=== PATIENT | female | born 1975 | race Caucasian/White ===

== ENCOUNTER 2018-06-03 11:07 | Inpatient (IN) | payer BC ==
[~2018-06-03] VITALS: Ht 162.6 cm; Wt 86.2 kg
[2018-06-03 11:21] VITALS: BP 123/70
--- NOTE | 2018-06-03 11:26 | NUR ---
Note undone in EDM - 06/03/18 at 1142 by SANGITA PATIENT PRESENTS TO ED WITH LOWER ABD PAIN AND CRAMPING ACCOMPANIED BY VAGINAL BLEEDING x3 DAYS.DENIES N/V/D; SKIN IS PINK/WARM/DRY; AAOX4 WITH EVEN AND STEADY GAIT; LUNGS CLEAR BL; HR EVEN AND REGULAR; PT DENIES ANY FEVER, CP, SOB, OR COUGH AT THIS TIME; PATIENT STATES PAIN OF 10/10 AT THIS TIME; VSS; PATIENT POSITIONED FOR COMFORT; HOB ELEVATED; BEDRAILS UP X2; BED DOWN. ER MADE AWARE OF PT STATUS.
--- NOTE | 2018-06-03 11:38 | NUR ---
Patient being evaluated by physician at bedside.
--- NOTE | 2018-06-03 11:43 | NUR ---
PATIENT PRESENTS TO ED WITH LOWER ABD PAIN AND CRAMPING.DENIES N/V/D; SKIN IS PINK/WARM/DRY; AAOX4 WITH EVEN AND STEADY GAIT; LUNGS CLEAR BL; HR EVEN AND REGULAR; PT DENIES ANY FEVER, CP, SOB, OR COUGH AT THIS TIME; PATIENT STATES PAIN OF 10/10 AT THIS TIME; VSS; PATIENT POSITIONED FOR COMFORT; HOB ELEVATED; BEDRAILS UP X2; BED DOWN. ER MD MADE AWARE OF PT STATUS.
--- NOTE | 2018-06-03 12:30 | NUR ---
PATIENT TAKEN IN WHEELCHAIR TO CT
--- NOTE | 2018-06-03 13:13 | NUR ---
Rigo wheeler in ED - 06/03/18 at 1314 by MESFIN PT BACK IN BED FROM CT. SAFETY MEASURES IN PLACE; MOTHER AT BEDSIDE. BED IN LOWER LOCKED POSITION; BEDRAILS UP X2.
[2018-06-03] MEDS ORDERED: PIPERACILLIN/TAZOBACTAM 3.375 GM in DEXTROSE 5% 50 ML IV ONE (13:25)
[2018-06-03] MEDS ORDERED: PIPERACILLIN/TAZOBACTAM 3.375 GM VIAL IV ONE (13:44)
[2018-06-03 13:54] LABS: BASOPHILS # (AUTO) 0.1 K/uL (0.00-0.22); BASOPHILS % (AUTO) 0.4 % (0.0-2.0); EOSINOPHILS # (AUTO) 0.1 K/uL (0-0.4); EOSINOPHILS % (AUTO) 0.6 % (0.0-4.0); HEMATOCRIT 43.2 % (36-48); HEMOGLOBIN 13.7 g/dL (12.0-16.0); LYMPHOCYTES # (AUTO) 1.2 K/uL (2.5-16.5); LYMPHOCYTES % (AUTO) 8.3 % (20.5-51.1); MEAN CORPUSCULAR HEMOGLOBIN 27 pg (27-31); MEAN CORPUSCULAR HGB CONC 32 g/dL (33-37); MEAN CORPUSCULAR VOLUME 85.9 fL (80-94); MONOCYTES # (AUTO) 0.8 K/uL (0.8-1.0); MONOCYTES % (AUTO) 5.1 % (1.7-9.3); NEUTROPHILS # (AUTO) 12.9 K/uL (1.8-7.7); NEUTROPHILS % (AUTO) 85.6 % (42.2-75.2); PLATELET COUNT (AUTO) 206 K/uL (140-450); RED BLOOD CELL COUNT(AUTO) 5.02 MIL/uL (4.20-5.40); RED CELL DISTRIBUTION WIDTH 15.8 % (11.6-13.7)
[2018-06-03 14:10] LABS: PROTHROMBIN TIME 9.3 secs (10.8-13.4)
--- NOTE | 2018-06-03 14:20 | NUR ---
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 REPORT AND PAPERWORK GIVEN TO RN. PATIENT STABLE AT TIME OF TRANSPORT.
[2018-06-03 14:41] LABS: ANION GAP 11.3 (8-16); CARBON DIOXIDE 29.8 mmol/L (21-32); POTASSIUM 4.1 mmol/L (3.5-5.1)
[2018-06-03 14:42] LABS: ALBUMIN 4.2 g/dL (3.4-5.0); CREATININE 0.9 mg/dL (0.6-1.3); TOTAL BILIRUBIN 0.4 mg/dL (0.0-1.0)
[2018-06-03] MEDS ORDERED: MORPHINE SULFATE 4 MG/ML SYR IVP PRN ×2 (14:45→18:25)
[2018-06-03] MEDS ORDERED: ACETAMINOPHEN 325 MG TAB PO PRN (14:45)
[2018-06-03] MEDS ORDERED: ONDANSETRON 4 MG/2 ML VIAL IVP PRN ×3 (14:45→18:25)
[2018-06-03] MEDS ORDERED: HYDROcodone/APAP 5/325 MG 1 TAB TAB PO PRN (14:45)
[2018-06-03 15:30] VITALS: BP 118/66
--- NOTE | 2018-06-03 15:30 | NUR ---
PATIENT ARRIVED FROM OR, ACCOMPANIED BY RN OLLIE. DX - APPENDICITIS. VITALS ARE FOLLOWS: BP 118/66, RR 17, HR 80, TEMP 98.3 O2SAT 97% ON ROOM AIR. A/Ox4, ABLE TO MAKE NEEDS KNOWN. CAMEROONIAN SPEAKING. IV SITE LOCATED ON LEFT ANTECUBITAL, 18 GAUGE, INTACT, PATENT, NO S/SX OF REDNESS OR SWELLING NOTED. IV FLUID LACTATED RINGERS SOLUTION, RUNNING AT 100mL/HR. ON NPO DIET. ORIENTED PATIENT TO ROOM, CALL LIGHT WITHIN REACH, BED IN THE LOWEST POSITION, WILL CONTINUE TO MONITOR.
[2018-06-03] MEDS: LACTATED RINGERS 1,000 ML IV SCH (15:50)
--- NOTE | 2018-06-03 16:08 | NUR ---
ADMISSION QUESTIONS DONE. COMPUTER NUMERICAL CONTROL GRINDER #[id number].
--- NOTE | 2018-06-03 18:05 | NUR ---
DR GÓMEZ SEEN THE PT. PT SIGNED CONSENT FOR LAP APPY. DELI BAKERY CLERK PHONE USED. DELI BAKERY CLERK NAME NIVIA. #ON CONSENT FORM. PT VERBALIZED UNDERSTANDING.
--- NOTE | 2018-06-03 18:15 | NUR ---
PT WAS TAKEN BY OR NURSES
[2018-06-03] MEDS ORDERED: LACTATED RINGERS 1,000 ML IV SCH (18:19)
[2018-06-03] MEDS ORDERED: MEPERIDINE 25 MG/ML SYR IVP PRN (18:20)
[2018-06-03] MEDS ORDERED: HYDROmorphone 1 MG/ML AMP IVP PRN (18:20)
[2018-06-03] MEDS ORDERED: diphenhydrAMINE 50 MG/ML VIAL IVP PRN (18:20)
[2018-06-03] MEDS ORDERED: ROCURONIUM 50 MG/5 ML VIAL IV ONE (18:25)
[2018-06-03] MEDS ORDERED: GLYCOPYRROLATE 0.2 MG/ML VIAL ONE (18:25)
[2018-06-03] MEDS ORDERED: SUCCINYLCHOLINE CHLORIDE 200 MG/10 ML VIAL IVP ONE ×2 (18:25→18:29)
[2018-06-03] MEDS ORDERED: SEVOFLURANE 250 ML BTL INH ONE (18:25)
[2018-06-03] MEDS ORDERED: DEXAMETHASONE 4 MG/ML VIAL ONE (18:25)
[2018-06-03] MEDS ORDERED: NEOSTIGMINE 1:1000 10 MG/10 ML VIAL ONE (18:25)
[2018-06-03] MEDS ORDERED: ONDANSETRON 4 MG/2 ML VIAL ONE (18:25)
[2018-06-03] MEDS ORDERED: PROPOFOL 200 MG/20 ML VIAL IV ONE (18:25)
[2018-06-03] MEDS ORDERED: ACETAMINOPHEN/CODEINE 300/30MG 1 TAB PO PRN (18:25)
[2018-06-03] MEDS ORDERED: MIDAZOLAM 2 MG/2 ML VIAL ONE (18:28)
[2018-06-03] MEDS ORDERED: MEPERIDINE 50 MG/ML SYR ONE (18:28)
[2018-06-03] MEDS ORDERED: fentaNYL 0.05 MG/ML VIAL ONE (18:28)
[2018-06-03] MEDS ORDERED: BUPIVACAINE-MPF/EPI 0.25% 30 ML VIAL INJ ONE (18:32)
--- NOTE | 2018-06-03 19:30 | NUR ---
PT REPORT GIVEN TO SUPERVISOR SAMPLE RN.
--- NOTE | 2018-06-03 20:10 | NUR ---
PT NOT IN ROOM. WILL FOLLOW WITH IS ONCE PT IS BACK.
[2018-06-03 20:30] VITALS: BP 110/58
--- NOTE | 2018-06-03 20:30 | NUR ---
RECD. FROM OR VIA BED, AWAKE, A/OX4, STILL DROWSY. REPORT GIVEN BY OLLIE/Lan ESPARZA. PATIENT RESTING COMFORTABLY IN BED. RESPIRATION EVEN AND UNLABORED. ON 02 AT 2 LITERS VIA N/C, SATURATING 95%. IV OF LR AT 100 ML/HR INFUSING, LEFT AC G18. INCISION IN THE ABDOMEN (3) COVERED WITH GAUZE DRESSING, ALL DRY AND INTACT. VS STABLE. NO APPEARANCE OF PAIN NOTED 0/10. WILL CONTINUE TO MONITOR. AT THE BEDSIDE.
[2018-06-03] MEDS: PIPER/TAZO 3.375GM/D5W PREMIX 50 ML IV SCH (20:58)
[2018-06-03 21:00] VITALS: BP 100/53
[2018-06-03] MEDS ORDERED: PIPERACILLIN/TAZOBACTAM 3.375 GM in DEXTROSE 5% 50 ML IV SCH (21:00)
--- NOTE | 2018-06-03 21:00 | NUR ---
Patient's Plan of Care was discussed and reviewed with BUTTON MAKER AND INSTALLER: CONSTANTIN DODGE
[2018-06-03 22:00] VITALS: BP 105/71
--- NOTE | 2018-06-03 22:00 | NUR ---
VOIDED 300 ML CLEAR YELLOW URINE BY BEDPAN.
--- NOTE | 2018-06-03 23:00 | NUR ---
ENCOURAGED TO ALTERNATELY TURN TO SIDES. COOPERATIVE.
[2018-06-04] MEDS: LACTATED RINGERS 1,000 ML IV SCH ×3 (00:41→10:41)
[2018-06-04 04:00] VITALS: BP 97/61
--- NOTE | 2018-06-04 05:00 | NUR ---
VOIDED THREE TIMES ALREADY SINCE ARRIVAL FROM OR.
[2018-06-04] MEDS: PIPER/TAZO 3.375GM/D5W PREMIX 50 ML IV SCH ×2 (05:32→12:09)
--- NOTE | 2018-06-04 06:00 | NUR ---
ASSISTED TO GET OUT OF BED AND AMBULATE INSIDE ROOM, TOLERATED WELL.
[2018-06-04 06:07] LABS: BASOPHILS # (AUTO) 0.1 K/uL (0.00-0.22); BASOPHILS % (AUTO) 0.7 % (0.0-2.0); EOSINOPHILS # (AUTO) 0.1 K/uL (0-0.4); EOSINOPHILS % (AUTO) 0.6 % (0.0-4.0); HEMATOCRIT 39.5 % (36-48); HEMOGLOBIN 12.6 g/dL (12.0-16.0); LYMPHOCYTES # (AUTO) 0.6 K/uL (2.5-16.5); LYMPHOCYTES % (AUTO) 5.6 % (20.5-51.1); MEAN CORPUSCULAR HEMOGLOBIN 27 pg (27-31); MEAN CORPUSCULAR HGB CONC 32 g/dL (33-37); MEAN CORPUSCULAR VOLUME 85.9 fL (80-94); MONOCYTES # (AUTO) 0.1 K/uL (0.8-1.0); MONOCYTES % (AUTO) 1.3 % (1.7-9.3); NEUTROPHILS # (AUTO) 9.7 K/uL (1.8-7.7); NEUTROPHILS % (AUTO) 91.8 % (42.2-75.2); PLATELET COUNT (AUTO) 189 K/uL (140-450); RED CELL DISTRIBUTION WIDTH 15.5 % (11.6-13.7); WHITE BLOOD COUNT (AUTO) 10.6 K/uL (4.8-10.8)
--- NOTE | 2018-06-04 06:50 | NUR ---
WITH ITCHINESS, PAGED DR. BHAKTA. ORDER HYDRALAZINE 25 MG. PO, WILL ENDORSED TO AM NURSE FOR VERIFICATION.
--- NOTE | 2018-06-04 07:01 | NUR ---
CONDITION REMAIN STABLE. WILL ENDORSE TO AM NURSE FOR CONTINUITY OF CARE.
--- NOTE | 2018-06-04 07:20 | NUR ---
PATIENT WAS DROWSY, ABLE TO ANSWER QUESTIONS. RESPIRATION EVEN AND UNLABOR ON ROOM AIR. PATIENT SPO2 WAS 90%, PATIENT WAS PLACED ON 2L VIA NC SPO2 92%. SKIN DRY, WARM, IV PATENT AND INTACT. DRESSING DRY AND CLEAN. PLAN OF CARE WAS DISCUSS WITH PATIENT. BED IS IN LOW POSITION. SIDE RAILS UP. CALL LIGHT WITHIN REACH.
[2018-06-04 07:54] LABS: POTASSIUM 4.2 mmol/L (3.5-5.1)
[2018-06-04 07:55] LABS: ANION GAP 10.6 (8-16); CARBON DIOXIDE 29.6 mmol/L (21-32)
[2018-06-04 08:00] VITALS: BP 92/54
--- NOTE | 2018-06-04 08:38 | NUR ---
PATIENT HAS BEEN SCREENED AND CATEGORIZED LOW NUTRITION RISK. PATIENT WILL BE SEEN WITHIN 7 DAYS OF ADMISSION. 06/10/[address]
--- NOTE | 2018-06-04 09:46 | NUR ---
PATIENT SLEEPING COMFORTABLY. RESPIRATION EVEN AND UNLABOR. ON 2L OF O2 NC. NO DISTRESS NOTED AT THIS TIME.
--- NOTE | 2018-06-04 10:21 | NUR ---
MRSA SAMPLE WAS COLLECTED AND SENT TO LAB
[2018-06-04 12:00] VITALS: BP 104/58
--- NOTE | 2018-06-04 12:00 | NUR ---
PATIENT WAS AWAKE, ALERT, RESPIRATION EVEN AND UNLABOR ON ROOM AIR. RECHECKED VITAL SIGNS. VITAL SIGNS WITHIN THE NORMAL RANGE. PATIENT RECEIVED ZOSYN ANTIBIOTIC AND TOLERATED WELL. NO DISTRESS NOTED. PATIENT WAS ENCOURAGED TO AMBULATE AROUND THE CORNER. PATIENT VERBALIZED UNDERSTANDING. CALL LIGHT WITHIN REACH.
--- NOTE | 2018-06-04 14:45 | NUR ---
PATIENT AMBULATED AROUND THE HALLWAY ACCOMPANIED BY STAFF, STEADY GAIT NO DISTRESS NOTED.
--- NOTE | 2018-06-04 15:00 | NUR ---
WOUND DRESSING WAS CHANGED PER ORDER. NO SIGNS OF INFECTION SEEN. INCISION CLEAN AND INTACT. WOUND PICTURE WAS TAKEN. PATIENT TOLERATED WELL
[2018-06-04 16:00] VITALS: BP 98/56
--- NOTE | 2018-06-04 16:00 | NUR ---
PATIENT WAS AWAKE, ALERT. RESPIRATION EVEN, UNLABOR ON ROOM AIR. DENIED PAIN, N/V AT THIS TIME. NO DISTRESS WAS NOTED. CALL LIGHT WITHIN REACH
[2018-06-04] MEDS ORDERED: ACET-2619 PO (16:17)
--- NOTE | 2018-06-04 18:15 | NUR ---
PATIENT COMPLAINED OF STOMACH CRAMP AFTER EATING SOLID FOOD, DENIED NAUSEA, VOMITING. PATIENT TOLERATED DIET WELL.
--- NOTE | 2018-06-04 18:45 | NUR ---
DISCHARGE INSTRUCTION AND PRESCRIPTIONS WERE GIVEN AND EXPLAINED TO PATIENT. PATIENT VERBALIZED UNDERSTANDING. IV WAS REMOVED, CATHETER INTACT, NO ACTIVE BLEEDING SEEN. WOUND CARE INSTRUCTION WAS EXPLAINED TO PATIENT. ID BAND WAS REMOVED. PATIENT WAS ESCORTED OUT BY STAFF. ALL BELONGINGS WERE TAKEN WITH THE PATIENT. PATIENT IS STABLE AT THIS TIME Addendum: 06/04/18 at 1909 by Mariia Alfaro RN DISCHARGE INSTRUCTION WAS EXPLAINED VIA HEEL SEAT FITTER MACHINE ID [id number]
== END 2018-06-04 18:45 | disposition home or self-care (01) | DRG 343 ==
LOC: MED 11:07 → MTU 14:51
PROVIDERS: ADMIT Internal Medicine; ATTEND Internal Medicine
PROC: 0DTJ4ZZ Resection of Appendix, Percutaneous Endoscopic Approach (ICD-10-PCS; principal; 2018-06-03 15:15)
DX: K35.80 Unspecified acute appendicitis (principal)
CPT/HCPCS: 36415; 80048; 80053; 85025; 85610; 86886; 86900; 86901; 87070; 87075; 87081; 87205; 96365; 99285; J0330; J1100; J2175; J2250; J2405; J2543; J2704; J2710; J3010; J3490; J7120

== ENCOUNTER 2022-04-08 11:23 | Emergency (ER) | payer BC ==
[~2022-04-08] VITALS: Ht 165.1 cm; Wt 84.4 kg
[~2022-04-08 11:23] MED LIST: ACET-2619 PO
[2022-04-08 12:00] VITALS: BP 125/62
--- NOTE | 2022-04-08 12:53 | NUR ---
COVID, FLU SWABS DONE.
--- NOTE | 2022-04-08 15:32 | NUR ---
Rigo wheeler in [facility] - 04/08/22 at 1532 by MED1 SATURNINO
[2022-04-08] MEDS ORDERED: BENZ150C2 PO (16:41)
[2022-04-08] MEDS ORDERED: PRED20TA5 PO (16:41)
[2022-04-08] MEDS ORDERED: ALBU0.0912 IH (16:41)
[2022-04-08 16:56] VITALS: BP 144/70
--- NOTE | 2022-04-08 16:57 | NUR ---
Patient discharged with v/s stable. Written and verbal after care instructions given and explained. Patient alert, oriented and verbalized understanding of instructions. Ambulatory with steady gait. All questions addressed prior to discharge. ID band removed. Patient advised to follow up with PMD. Rx of ALBUTEROL. PREDNISONE given. Patient educated on indication of medication including possible reaction and side effects. Opportunity to ask questions provided and answered.
== END 2022-04-08 16:57 | disposition home or self-care (01) ==
LOC: MED 11:23
DX: J20.9 Acute bronchitis, unspecified (principal); Z20.822 Contact with and (suspected) exposure to COVID-19; Z90.49 Acquired absence of other specified parts of digestive tract
CPT/HCPCS: 71045; 99284

== ENCOUNTER 2022-05-05 21:37 | Emergency (ER) | payer BC ==
[~2022-05-05] VITALS: Ht 157.5 cm; Wt 65.8 kg
[~2022-05-05 21:37] MED LIST changes: +ALBU0.0912 IH; +BENZ150C2 PO; +PRED20TA5 PO
[2022-05-05 21:40] VITALS: BP 127/90
--- NOTE | 2022-05-05 21:43 | NUR ---
TO LOBBY A/W BED AMBULATORY SWABS FOR MARYJO, INFLUENZA SENT TO LAB
--- NOTE | 2022-05-05 22:35 | NUR ---
PT TO BED 11
--- NOTE | 2022-05-05 22:44 | NUR ---
Patient being evaluated by physician at bedside.
[2022-05-05] MEDS ORDERED: KETOROLAC 30 MG/ML VIAL IM ONE (22:50)
[2022-05-05 23:01] LABS: BASOPHILS % (AUTO) 0.4 % (0.0-2.0); EOSINOPHILS # (AUTO) 0.2 K/uL (0-0.4); HEMATOCRIT 43.1 % (36-48); HEMOGLOBIN 13.9 g/dL (12.0-16.0); LYMPHOCYTES # (AUTO) 1.8 K/uL (2.5-16.5); LYMPHOCYTES % (AUTO) 17.4 % (20.5-51.1); MEAN CORPUSCULAR HEMOGLOBIN 28 pg (27-31); MEAN CORPUSCULAR HGB CONC 32 g/dL (33-37); MEAN CORPUSCULAR VOLUME 87.6 fL (80-94); MONOCYTES # (AUTO) 0.6 K/uL (0.8-1.0); NEUTROPHILS # (AUTO) 7.8 K/uL (1.8-7.7); NEUTROPHILS % (AUTO) 74.2 % (42.2-75.2); PLATELET COUNT (AUTO) 235 K/uL (140-450); RED BLOOD CELL COUNT(AUTO) 4.93 MIL/uL (4.20-5.40); RED CELL DISTRIBUTION WIDTH 15.2 % (11.6-13.7); WHITE BLOOD COUNT (AUTO) 10.5 K/uL (4.8-10.8)
[2022-05-05 23:56] LABS: ALBUMIN 4.1 g/dL (3.4-5.0); ANION GAP 16.3 (8-16); CARBON DIOXIDE 27.6 mmol/L (21-32); POTASSIUM 3.9 mmol/L (3.5-5.1); TOTAL BILIRUBIN 0.3 mg/dL (0.0-1.0)
[2022-05-06] MEDS ORDERED: AZIT500T8 PO (00:26)
[2022-05-06] MEDS ORDERED: IBUP-2213 PO (00:26)
--- NOTE | 2022-05-06 00:30 | NUR ---
Written and verbal after care instructions given and explained. Patient alert, oriented and verbalized understanding of instructions. Ambulatory with steady gait. All questions addressed prior to discharge. ID band removed. Patient advised to follow up with PMD. Rx of AZITHROMYCIN AND IBUPROFEN given. Patient educated on indication of medication including possible reaction and side effects. Opportunity to ask questions provided and answered.
== END 2022-05-06 00:30 | disposition home or self-care (01) ==
LOC: MED 21:37
DX: R51.9 Headache, unspecified (principal); Z20.822 Contact with and (suspected) exposure to COVID-19; J40 Bronchitis, not specified as acute or chronic; Z79.899 Other long term (current) drug therapy
CPT/HCPCS: 36415; 71045; 80053; 85025; 87426; 87804; 96372; 99284; J1885; Q0092

== ENCOUNTER 2023-03-20 12:59 | Emergency (ER) | payer BC ==
[~2023-03-20] VITALS: Ht 157.5 cm; Wt 99.8 kg
[~2023-03-20 12:59] MED LIST changes: +AZIT500T8 PO; +IBUP-2213 PO
[2023-03-20 13:31] VITALS: BP 114/66; PULSE 81; RESP 18; TEMP 96.7; O2SAT 95
[2023-03-20] MEDS ORDERED: BENZ-300 PO (15:03)
[2023-03-20] MEDS ORDERED: FLONAS NS (15:03)
[2023-03-20] MEDS ORDERED: LORA-1415 PO (15:03)
== END 2023-03-20 16:24 | disposition home or self-care (01) ==
LOC: MED 12:59
DX: J02.9 Acute pharyngitis, unspecified (principal); H92.03 Otalgia, bilateral; R05.9 Cough, unspecified; Z79.1 Long term (current) use of non-steroidal anti-inflammatories (NSAID); Z79.2 Long term (current) use of antibiotics
CPT/HCPCS: 87081; 99283